=== PATIENT | male | born 1965 | race Two or more races ===

== ENCOUNTER 2023-07-01 05:41 | Emergency (ER) | payer OTHER ==
[~2023-07-01] VITALS: Ht 182.9 cm; Wt 108.0 kg
[~2023-07-01 05:41] MED LIST: DIOVAN40 MG PO
== END 2023-07-01 06:52 ==
LOC: ER 05:41
DX: R53.81 Other malaise (principal); R20.2 Paresthesia of skin; I10 Essential (primary) hypertension

== ENCOUNTER 2025-09-21 06:15 | Day surgery (SDC) | payer OTHER ==
[2025-09-21] MEDS ORDERED: fentaNYL CITRATE 50 MCG/ML AMPUL IV PUSH ONE (09:00)
[2025-09-21] MEDS ORDERED: DIPHENHYDRAMINE HCL 50 MG/ML VIAL 1ML IV ONE (09:00)
[2025-09-21] MEDS ORDERED: MIDAZOLAM HCL 2 MG/2 ML VIAL IV ONE (09:00)
== END 2025-09-21 10:30 | disposition home or self-care (01) ==
LOC: AMB-ENDOS 06:15
PROVIDERS: ATTEND Colon & Rectal Surgery
DX: K63.5 Polyp of colon (principal); K57.30 Diverticulosis of large intestine without perforation or abscess without bleeding